=== PATIENT | male | born 1970 | race Caucasian/White ===

== ENCOUNTER 2016-08-01 15:57 | Emergency (ER) | payer SELFPAY ==
[~2016-08-01] VITALS: Ht 177.8 cm; Wt 83.5 kg
[2016-08-01 16:45] VITALS: BP 166/91
--- NOTE | 2016-08-01 16:58 | PHYS DOC ---
Past Medical History Past Medical History: No Pertinent History Past Surgical History: No Surgical History Adult General Chief Complaint Chief Complaint: SHOULDER INJURY [facility] HPI Patient is a 46 year old female presents to the emergency department stating that he is having right shoulder pain and discomfort. 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 Patient states that he is also having pain in the elbow that is increased with lower arm movement and discomfort. He denies any trauma or injury. 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 Patient states he's been taking ibuprofen approximately 800 mg every 8 hours. He states occasionally he has taken more. He denies any further injury at this time. Patient is right-hand dominant. Review of Systems Review of Systems Constitutional: Denies fever or chills [] Eyes: Denies change in visual acuity, redness, or eye pain [] HENT: Denies nasal congestion or sore throat [] Respiratory: Denies cough or shortness of breath [] Cardiovascular: No additional information not addressed in HPI [] GI: Denies abdominal pain, nausea, vomiting, bloody stools or diarrhea [] : Denies dysuria or hematuria [] Musculoskeletal: Denies back pain. Right shoulder pain and discomfort with elbow involvement Integument: Denies rash or skin lesions [] Neurologic: Denies headache, focal weakness or sensory changes [] Physical Exam Physical Exam Constitutional: Well developed, well nourished, no acute distress, non-toxic appearance. [] HENT: Normocephalic, atraumatic, bilateral external ears normal, oropharynx moist, no oral exudates, nose normal. [] Eyes: PERRLA, EOMI, conjunctiva normal, no discharge. [] Neck: Normal range of motion, no tenderness, supple, no stridor. [] Cardiovascular:Heart rate regular rhythm Lungs & Thorax: no respiratory distress Skin: Warm, dry, no erythema, no rash. [] Back: No tenderness Extremities: Right shoulder/clavicle tenderness, no cyanosis, no clubbing, ROM intact, no edema. Shunt also noted to have right elbow pain and discomfort upon moving the elbow in rotating the forearm. Patient with equal materials handling coordinator and strength bilaterally. Equal sensation noted. Patient with decreased range of motion of the right shoulder. Peripheral pulses 2+ cap refill brisk less than 2 seconds. Neurologic: Alert and oriented X 3, normal motor function, normal sensory function, no focal deficits noted. [] Psychologic: Affect normal, judgement normal, mood normal. [] Current Patient Data Vital Signs Vital Signs Date Time Temp Pulse Resp B/P Pulse Ox O2 Delivery O2 Flow Rate FiO2 08/01/16 16:45 98.2 74 18 94 Room Air 98.2 EKG EKG [] Radiology/Procedures Radiology/Procedures [] Course & Med Decision Making Course & Med Decision Making Pertinent Labs and Imaging studies reviewed. (See chart for details) X-ray was negative for any bony abnormalities per Dr. Duran. Patient will be placed in a sling with recommendations for ibuprofen 800 mg every 8 hours. He' ll be provided with Flexeril and hydrocodone for severe pain and discomfort as well as muscle spasms. Patient was also instructed to use ice packs on the elbow area for bursitis. He was instructed these medications will cause drowsiness do not take any be alert and oriented. Patient was also encouraged to follow-up with orthopedic in the next week. Signs symptoms to return back to emergency department been provided. Patient agrees with discharge instructions treatment regimens and follow-up recommendations. [] Dragon Disclaimer Dragon Disclaimer This electronic medical record was generated, in whole or in part, using a voice recognition dictation system. Departure Departure Impression: Primary Impression: Right shoulder pain Additional Impression: Bursitis of right elbow Disposition: 01 HOME, SELF-CARE Condition: STABLE Referrals: NO PCP (PCP) LEO MATA MD Patient Instructions: Arm Sling Use-Brief, Bursitis, [id number], Shoulder Pain, [id number] Additional Instructions: X-rays were negative for any fractures or abnormalities. Wear the sling on your right arm until you follow-up with orthopedic. Take the arm out of the sling 2-3 times a day and do active range of motion. Flexeril and hydrocodone will both cause drowsiness do not take any be alert and oriented. Ice packs on 20 minutes off 20 minutes several times a day. Follow-up with Dr. Baca in the next week. Return back to emergency prior signs symptoms of become worse. Scripts Hydrocodone/Apap 5-325 ([place] 5-325 Tablet)1 Each Tablet1 Tab PO PRN Q6HRS PRN PAIN #10 TAB Prov:JONATHON ASIF APRN 08/01/16 Cyclobenzaprine Hcl 10 Mg [id number] Mg PO TID #30 TAB Prov:JONATHON ASIF APRN 08/01/16 Problem Qualifiers JONATHON ASIF APRN Aug 01, 2016 16:58
[2016-08-01] MEDS ORDERED: HYDR-971 PO (17:36)
[2016-08-01] MEDS ORDERED: CYCL10TA2 PO (17:36)
--- NOTE | 2016-08-02 08:36 | RAD ---
Right shoulder radiographs History: Pain and discomfort. Comparison: None. Findings: AP internal rotation, AP external rotation, and scapular Y-view of the right shoulder. No acute fracture or dislocation is identified. No significant degeneration is seen. Impression: No acute osseous abnormality identified.
== END 2016-08-01 17:49 | disposition home or self-care (01) ==
LOC: ER 15:57
DX: M25.511 Pain in right shoulder (principal); M70.21 Olecranon bursitis, right elbow; Y93.89 Activity, other specified
CPT/HCPCS: 73030; 99284